=== PATIENT | female | born 1940 | race Caucasian/White ===

== ENCOUNTER 2024-05-18 17:07 | Inpatient (IN) | payer MEDICARE, SELFPAY ==
[2024-05-18] VITALS (20 sets, daily range): BP systolic 132–192; BP diastolic 60–113; PULSE 60–63; BMI 33.6; BMI 31.2
[2024-05-18 13:40] LABS: % Basophils 1.2 % (0-2); % Immature Granulocytes 0.4 % (0-0.5); % Lymphocytes 16.5 % (20.5-51.1); % Monocytes 9.8 % (1.7-9.3); % Neutrophils 70.1 % (42.2-75.2); Absolute Basophils 0.1 10^3/uL (0-0.2); Absolute Eosinophils 0.2 10^3/uL (0-0.7); Absolute Lymphocytes 1.4 10^3/uL (1.2-3.4); Absolute Monocytes 0.8 10^3/uL (0.1-0.6); Absolute Neutrophils 5.8 10^3/uL (1.4-6.5); Hemoglobin 15.1 g/dL (12.0-16.0); Mean Corp Hgb Conc. 32.8 g/dL (33.0-37.0); Mean Corpuscular Hgb 28.4 pg (27.0-31.0); Mean Corpuscular Volume 86.5 fL (81.0-99.0); Mean Platelet Volume 8.2 fL (7.4-10.4); Nucleated Red Blood Cells % 0 %; Platelet Count 376 10^3/uL (130-400); Red Blood Cell Count 5.32 10^6/uL (4.20-5.40); Red Cell Dist. Width 12.7 % (11.5-14.5); White Blood Cell Count 8.3 10^3/uL (4.8-10.8)
[2024-05-18 13:56] LABS: ALT (SGPT) 22 U/L (0-35); AST (SGOT) 31 U/L (14-36); Albumin 4.2 g/dl (3.5-5.0); Alkaline Phosphatase 102 U/L (38-126); Blood Urea Nitrogen 32 mg/dl (7-17); Calcium 10.1 mg/dl (8.4-10.2); Carbon Dioxide 29 mmol/L (22-30); Chloride 97 mmol/L (98-107); Estimated Creatinine Clearance 32 ml/min; Glucose 101 mg/dl (70-99); Sodium 134 mmol/L (135-145); Total Bilirubin 0.6 mg/dl (0.2-1.3); Total Protein 7.6 g/dl (6.3-8.2); eGFR 44.64
--- NOTE | 2024-05-18 14:24 | ED.GENMED ---
History of Present Illness
General
Chief Complaint: Numbness
Source: patient
Exam Limitations: none
Time Seen by Provider: 05/18/24 14:03
Nursing documentation reviewed up to this point in time: agreed with
History of Present Illness
History of Present Illness:
83-year-old female with a past medical history of hypertension who presents to the emergency room for evaluation of clumsiness and paresthesias. Patient reports that symptoms have been ongoing for approximately the past week. She says that she has
had trouble with clumsiness in her hands and legs�she specifically points to difficulty with lifting glasses, dialing telephone numbers, ambulating. She says that she feels symptoms are worsening. She says she has associated paresthesias in the
hands and the feet. She denies any weakness but rather lack of control. She denies any acute change in her vision. She disclosed the symptoms over the phone to her daughter this morning who called EMS to bring her to the hospital for assessment.
Daughter says that she thought her mother speech was slightly slurred on the phone this morning but patient says this was because she was laying her head on a pillow while she was talking and she never actually had any speech changes; daughter
admits that in person her speech seems normal here. Patient also complains of back pain on review of systems but says that this is more of a chronic issue that has been exacerbated over the past 2 weeks since she lifted heavy grocery bag. She also
reports that she has noted frequent 'charley horse' in her thighs and back intermittently for the past few weeks despite drinking plenty of fluids. She denies any history of neuropathy or diabetes. She denies any alcohol use. She denies any other
complaints.
Past History
Past History
ED Past Medical History: None
ED Past Surgical History: None
Social History
Tobacco: Non-smoker
Personal:
Living: with family
Employment: Retired
Review of Systems
Review of Systems
All Other Systems: ROS reviewed and negative except as documented in HPI and ROS
Constitutional: Denies fever
Respiratory: Denies trouble breathing
Cardiac: Denies chest pain
ABD/GI: Denies abdominal pain, nausea or vomiting
: Denies flank pain
Musculoskeletal: Reports back pain; Denies neck pain
Neurological: Reports numbness and other (Clumsiness); Denies dizzy, headache or weakness
Phy Exam
Physical Exam
Physical Exam:
General: Awake, alert, oriented x3; no acute distress
Head: Normocephalic, atraumatic
Eyes: Conjunctiva normal, EOMI, pupils equal round and reactive to light bilaterally
Throat: Airway intact, handling secretions
Neck: Trachea midline, supple without meningismus
Lungs: Clear to auscultation bilaterally, no wheezing, rales, rhonchi
Heart: Regular rate and rhythm, no murmurs, gallops, or rubs appreciated
Abd: Soft, non distended, nontender
Neuro: Cranial nerves intact 2 through 12, speech is fluent with no dysarthria or aphasia; limb ataxia present in both upper extremities as well as both lower extremities although left lower extremity much worse than the right; motor and sensory
function objectively intact and symmetric in all extremities
Skin: no rash
Extremities: No edema in extremities, equal pulses in all extremities
Scores
Heart Failure Risk
Heart Failure Risk Score: Not Applicable
Heart Score for Chest Pain Patients
STEMI patient?: Not applicable
Withdrawal Assessment of Alcohol
Withdrawal Assessment Completed?: Not applicable
Course
Orders/Labs/Results
Orders:
Orders
05/18/24 13:29
Complete Blood Count/With Diff Urgent
Comprehensive Metabolic Panel Urgent
Erythrocyte Sed Rate Urgent
Comment: ADD TO SPECIMEN IN LAB
05/18/24 14:20
Electrocardiogram (*1) Urgent
Reason for Study: TIA/Stroke
EKG- Treatment ONCE
05/18/24 14:23
B12 [Vitamin B12] Urgent
C-Reactive Protein Urgent
Comment: ADD TO SPECIMEN IN LAB
Folate Urgent
TSH Reflex To Free T4 Urgent
Comment: ADDED TO SPECIMEN IN LAB
05/18/24 14:24
NEUROLOGY CONSULT Urgent
Consulting Provider: Hector Howard
Was physician already notified: Yes
05/18/24 14:30
Orthostatic VS- Treatment ONCE
05/18/24 14:31
0.9% Sodium Chloride 500 ml [Nss] 500 ml IV BOLUS
05/18/24 14:33
Orthostatic Vital Signs As Directed
Orthostatic VS Frequency: BID
Comment: lying flat x 3 mins then check, seated 3 minutes check, stand 3 mins check
05/18/24 15:26
EMG [Electromyography] Routine
Reason for Exam: Sensory variant Guillain-Godoy�
Abnormal Lab Results
05/18/24
13:29
MCHC 32.8 L g/dL
(33.0-37.0)
Absolute Monos (auto) 0.8 H 10^3/uL
(0.1-0.6)
Lymphocytes % 16.5 L %
(20.5-51.1)
Monocytes % 9.8 H %
(1.7-9.3)
Sodium 134 L mmol/L
(135-145)
Chloride 97 L mmol/L
(98-107)
BUN 32 H mg/dl
(7-17)
Creatinine 1.2 H mg/dL
(0.6-1.0)
Glucose 101 H mg/dl
(70-99)
05/18/24 13:29
05/18/24 13:29
Vital Signs
Initial and Last Documented VS:
Initial Vital Signs
Temp Pulse Resp BP Pulse Ox
36.3 C 64 20 132/113 97
05/18/24 13:20 05/18/24 13:20 05/18/24 13:20 05/18/24 13:20 05/18/24 13:20
Last Documented Vital Signs
Temp Pulse Resp BP Pulse Ox
36.3 C 64 20 132/113 97
05/18/24 13:20 05/18/24 13:20 05/18/24 13:20 05/18/24 13:20 05/18/24 13:20
MDM/Problems Addressed
Differential Diagnosis Includes:
Subacute stroke, nutritional deficiency/electrolyte derangement, demyelinating disease, neuropathy
MDM/Problems Addressed:
83-year-old female presents to the ER with clumsiness and paresthesias in the extremities for the past week. Hypertensive otherwise normal vitals. Physical exam as above. Labs were sent in triage including a CBC and a CMP�she does have mild MAGO
with a creatinine of 1.2 from baseline of 1. Will check CT head. Discussed case with neurology for evaluation.
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 Much less likely bilateral cerebellar insult. Recommended admission to hospitalist service for further evaluation and
treatment. Can hold on head imaging for now in favor of plan for EMG. Discussed with hospitalist.
Chronic conditions affecting care:
Hypertension
Acute Exacerbation and/or Progression of Chronic Illness:
Acute hypertensive
Acute Exacerbation and/or Progression of Chronic Illness: HTN
*Radiology
Radiology exam reviewed: radiology read reviewed
*Pulse Oximetry
Patient hypoxic: no
*Critical Care Note
Total Time (30-74mins, 75-104mins- exclusive of procedures): Not Applicable
Data Reviewed
Source: patient, records, family and ambulance crew
Patient Management
Discussion with other providers: Sales Support Technician (Discussed with neurology)
ED Attending Note
-
Portions of this chart may have been created with voice recognition software.� Occasional wrong word or��sound alike� substitutions may have occurred due to the inherent limitations of voice recognition software.
Discharge Plan
Departure
Patient Disposition: Admit
Date of Disposition: 05/18/24
Time of Disposition: 15:56
Admit to doctor: Vanessa
Presentation/result/management discussed w/ accepting MD/DO: Hospitalist
Discharge Problem:
Ataxia, Paresthesia
Prescriptions:
No Action
aspirin 81 MG tablet,delayed release (DR/EC)
81 mg PO DAILY
acetaminophen [Tylenol Extra Strength] 500 MG tablet
500 mg PO HSPRN PRN (Reason: sllep/relax )
loratadine 10 MG tablet
10 mg PO PRN PRN (Reason: allergy sxs )
cholecalciferol (vitamin D3) 1,000 UNITS tablet
1,000 units PO DAILY
atenolol 25 MG tablet
25 mg PO DAILY
Lactobac 2-Bifido 1-S. therm [High Potency Probiotic] 1 CAP capsule
1 cap PO DAILY
Referrals:
Chyna Velasquez DO [Family Provider] -
Interventions
Interventions:
*Risk Screen - Suicide Last Done: 05/18/24 13:20
*General Assessment Last Done: 05/18/24 13:20
*Neglect/Abuse Screening Last Done: 05/18/24 13:20
ED- Fall Risk Assessment Last Done: 05/18/24 13:32
ED- Neurological Assessment Last Done: 05/18/24 13:32
Discharge Date and Time
Print Language: CHINESE
--- NOTE | 2024-05-18 14:30 | CON.NEURO ---
Addendum entered and electronically signed by Hector Howard MD 05/18/24 17:02:
Check lumbar puncture to determine if there is cytoalbuminologic dissociation.
Original Note:
Neuro Assessment/Plan
Assessment
Subacute onset of distal numbness and ataxia beginning in fingertips and spreading proximally as well as in bilateral lower extremities and spreading proximally
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
Less likely would be metabolic disturbance producing symptoms
Plan
Check EMG with nerve conduction studies of more than 2 extremities to determine if there is evidence of sensory block consistent with possible Guillain-Godoy� syndrome; appreciate PM&R assistance
Check blood work for potential metabolic abnormalities
Initiate immunoglobulin therapy if EMG study is suggestive of Guillain-Godoy� type pattern
May maintain current antiplatelet agent treatment
Provide pregabalin 50 mg 3 times a day to reduce the patient's discomfort
Follow orthostatic blood pressures
DVT prophylaxis
Rehabilitation evaluations
Will follow
Consultation
Order
Date of Consultation: 05/18/24
Requesting Provider: Emergency department physician
Reason for Consult: Ataxia
Subjective/Objective
Subjective Data
Date of Service: May 18, 2024
Patient presented to this hospital's emergency department with subacute onset of numbness in all extremities as well as ataxia. The patient reports that approximately 2 weeks ago she lifted heavy groceries and 2 weeks following that issue, she
developed acute onset of left hand numbness. The numbness began in her fingertips and spread proximally up to mid arm on the left. Immediately after the onset of the left hand issue was right hand tingling which also spread up the arm. This was
followed days later with leg discomfort starting in the feet and progressing upwards. The patient is more disturbed by a sense of ataxia in bilateral hands which prevents her from being able to use her phone adequately especially in the last few
days. She has a mild sense of weakness in bilateral lower extremities with difficulty with ambulating. There have been no episodes which are similar.
Also of note was that the patient 10 days ago met with a chiropractor for the first time, without adjustments performed, for numerous visits.
Due to continued worsening, the patient presented to this hospital's emergency department.
Objective Data
Vital Signs
Temp Pulse Resp BP Pulse Ox
36.3 C 64 20 132/113 97
05/18/24 13:20 05/18/24 13:20 05/18/24 13:20 05/18/24 13:20 05/18/24 13:20
Lab Results
05/18/24 13:29
05/18/24 13:
Sodium 134 mmol/L (135-145) L 05/18/24 13:29
Potassium 5.0 mmol/L (3.5-5.1) 05/18/24 13:29
BUN 32 mg/dl (7-17) H 05/18/24 13:29
Glucose 101 mg/dl (70-99) H 05/18/24 13:29
Calcium 10.1 mg/dl (8.4-10.2) 05/18/24 13:29
Patient Allergies
codeine [Codeine] Allergy (Verified 05/18/24 13:19)
Unknown
Penicillins Allergy (Verified 05/18/24 13:19)
Unknown
MOST ANTIBIOTICS Allergy (Uncoded 05/18/24 13:19)
Unknown
Review of Systems
-
History Source: Patient and Family
All other systems: Reviewed and negative
Respiratory: Negative Trouble Breathing
Cardiac: Negative Chest Pain
Musculoskeletal: Back Pain (chronic) and Neck Pain
Neuro: Numbness and Ataxia; Negative Dizzy or Headache
Physical Exam
-
General: No Apparent Distress and Appears Stated Age
Eyes: Round OU, [place] Conjunctivae and No Ptosis; Negative Able to visualize OU
HEENT: Anicteric and Moist Mucous Membranes
Neck: Full Range of Motion
Respiratory: No Dyspnea
Cardiac: No JVD
GI: Non-distended
Skin: Unremarkable
Extremities: No Clubbing, No Cyanosis and No Edema
Psych: Intact Judgement/Insight
Extended Neurological Exam
Mood & Affect: Anxious
Attention Span & Concentration: Awake, Alert, Interactive and No Difficulty with 2 Step Request
Memory: Unremarkable
Tremor: Hand Tremor Absent and Head Tremor Absent
Speech: Quality Unremarkable and Quantity Unremarkable
Cranial Nerve II: Left Eye: Pupillary Reactivity Unremarkable, Pupillary Size Unremarkable and Visual Rivera Intact
Cranial Nerve II: Right Eye: Pupillary Reactivity Unremarkable, Pupillary Size Unremarkable and Visual Rivera Intact
Cranial Nerves III, IV, : Extraocular Movement: Extraocular Movement Full in all Directions
Cranial Nerve VII: Facial Symmetry: Normal Facial Symmetry
Cranial Nerve VIII: Hearing: Unremarkable Hearing to Normal Conversational Volume
Cranial Nerves IX, X: Palate Movement: Palate Elevation Symmetric
Cranial Nerve XI: Shoulder Shrug: Unremarkable
Cranial Nerve XII: Tongue Protusion: Midline
Muscle Strength, Overall: Reduced (Left quadriceps) and Otherwise Intact
Muscle Bulk & Tone: Bulk Unremarkable and Tone Unremarkable
Pronator Drift: Drift in Left Upper Extremity (Minimal) and Drift in Right Upper Extremity (Minimal)
Deep Tendon Reflexes: Absent Throughout
Touch Sensation: Pin Prick Reduced (Significantly distally)
Coordination: Negative Ugnfrq-mffp-tssjzm Testing Unremarkable (Minimally ataxic with the right upper extremity) or Fgja-Anxs-Otnv movements intact bilaterally (Mildly ataxic bilaterally)
Babinski Sign: Absent Bilaterally
Gait & Station: Unable to Assess
Data Reviewed
-
CT Head: Pending
Orthostatic Testing: Ordered
Labs: Ordered and Report Reviewed
Reviewed with: Physician, Patient and Family
Old Records: Summarized
Medications
-
Home Medications
�Medication �Instructions �Recorded
Lactobac no.2-Bifidobac no.1-S. 1 cap PO DAILY 04/19/20
thermo 112.5 billion cell capsule
(High Potency Probiotic)
acetaminophen 500 mg tablet 500 mg PO HSPRN PRN sllep/relax 04/19/20
(Tylenol Extra Strength)
aspirin 81 mg tablet,delayed 81 mg PO DAILY 04/19/20
release
atenolol 25 mg tablet 25 mg PO DAILY 04/19/20
cholecalciferol (vitamin D3) 25 1,000 units PO DAILY 04/19/20
mcg (1,000 unit) tablet
loratadine 10 mg tablet 10 mg PO PRN PRN allergy sxs 04/19/20
Past History
Past History
ED Past Medical History: COPD, HTN and Other (Vitamin D deficiency, retinal detachment on the right); Negative Renal failure (CKD 3)
ED Past Surgical History: Other (Cataract extraction)
Social History
Tobacco: Non-smoker
Personal:
Living: with family
Employment: Retired
Family History
Family History: Other (Reviewed and noncontributory)
[2024-05-18] MEDS: NSS 500 IV (14:41)
[2024-05-18 15:28] LABS: Erythrocyte Sed Rate 19 mm/hour (0-20)
[2024-05-18 15:56] LABS: Folate 13.9 ng/ml (2.76-20); Vitamin B12 233 pg/ml (239-931)
--- NOTE | 2024-05-18 16:02 | HPS.HSE ---
Family Physician
-
Family Physician: Chyna Velasquez
Chief Complaint
-
Ataxia and paresthesias
History of Present Illness
83 y/o F with PMHx Essential HTN who p/w CC ataxia and paresthesias. This is progressed over the last week. Patient reports that she has had sensations of numbness and tingling in her feet as well as fingertips. The patient's paresthesias in the
lower extremities have advanced approximately to the patient's buttocks. She denies any difficulty breathing or recent illnesses. Regarding the paresthesias in her fingertips. She states that her fingertips feel 'cold like stone.' She has had
ataxia. She is also had difficulty gripping items and dialing the phone. She has no other acute complaints.
Medical History
Past Medical History
Past Medical History: Reports HTN
Past Surgical History: Reports Other (N/A)
Social History
Tobacco: Non-smoker
Alcohol: None
Drug: None
Family History
Family History: Not pertinent
Allergies / Home Medications
Allergies reflects when Allergies were last updated in [employer].
Home Medications with original date entered in [employer]
Allergy/Medication List:
Allergies
Allergy/AdvReac Type Severity Reaction Status Date / Time
codeine [Codeine] Allergy Unknown Verified 05/18/24 13:19
Penicillins Allergy Unknown Verified 05/18/24 13:19
MOST ANTIBIOTICS Allergy Unknown Uncoded 05/18/24 13:19
Home Medications
Lactobac no.2-Bifidobac no.1-S. thermo 112.5 billion cell capsule (High Potency Probiotic) 1 cap PO DAILY 04/19/20
acetaminophen 500 mg tablet (Tylenol Extra Strength) 500 mg PO HSPRN PRN sllep/relax 04/19/20
aspirin 81 mg tablet,delayed release 81 mg PO DAILY 04/19/20
atenolol 25 mg tablet 25 mg PO DAILY 04/19/20
cholecalciferol (vitamin D3) 25 mcg (1,000 unit) tablet 1,000 units PO DAILY 04/19/20
loratadine 10 mg tablet 10 mg PO PRN PRN allergy sxs 04/19/20
Review of Systems
-
History Source: Patient
A 12 point ROS was completed and negative except as noted: Yes
Physical Exam
Vital Signs
Vital Signs
Temp Pulse Resp BP Pulse Ox
97.4 F 64 20 132/113 97
05/18/24 13:20 05/18/24 13:20 05/18/24 13:20 05/18/24 13:20 05/18/24 13:20
Physical Exam
General: Other (.)
Laboratory Results
-
05/18/24 13:29
05/18/24 13:29
Laboratory Results
Total Bilirubin 0.6 mg/dl (0.2-1.3) 05/18/24 13:29
AST 31 U/L (14-36) 05/18/24 13:29
ALT 22 U/L (0-35) 05/18/24 13:29
Alkaline Phosphatase 102 U/L (38-126) 05/18/24 13:29
Impression/Plan
-
Gen: NAD, AAOx3.
Eyes: EOMI, PERRLA, no scleral icterus.
Neck: supple.
CV: RRR, +S1/S2, no m/r/g.
Resp: CTAB, no rales, wheezes, or rhonchi.
Abd: +BS, soft, NT, ND
Skin: No rashes.
Neuro: CN 2-12 intact, decreased sensation to touch in fingers and toes. Pt states touch feels like 'pins and needles.' LLE 3/5
Psych: Normal mood and affect.
Paresthesias, distal numbness in all 4 extremities progressing proximally with associated ataxia, LLE weakness, subacute:
-seen by neuro, Dr. Howard. I have discussed the case with him over [employer].
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
-for EMG tomorrow. Dr. Singletary to perform [facility]
-start IVIG (dosing confirmed with pharmacist Perico Becerra)
-will need LP, Dr. Howard ordering
-Vit B12 low, replete
-PT/OT
Essential HTN with hypertensive urgency:
-cont home atenolol
-start Norvasc 5mg daily
FULL/SCDs - pt is for LP
[2024-05-18 16:45] LABS: TSH Reflex To Free T4 1.02 uIU/ml (0.47-4.68)
[2024-05-18] MEDS: CYANOCOBALAMIN 1000 MCG IM (17:33)
[2024-05-18 19:41] LABS: INR 1.02; PT 13.7 Sec (11.4-14.6)
[2024-05-18] MEDS: GAMMAGARD 200 IV (21:34)
[2024-05-18] MEDS: TYLENOL 650 MG PO (23:57)
[2024-05-19] VITALS (11 sets, daily range): BP systolic 60–175; BP diastolic 55–94; PULSE 66–77; O2SAT 96
--- NOTE | 2024-05-19 00:33 | PTCARENOTE ---
Pt received gammaglobulin as ordered without difficulty. VS taken.
[2024-05-19 07:22] LABS: Hematocrit 42.5 % (37.0-47.0); Hemoglobin 14.2 g/dL (12.0-16.0); Mean Corp Hgb Conc. 33.4 g/dL (33.0-37.0); Mean Corpuscular Hgb 28.4 pg (27.0-31.0); Mean Platelet Volume 8.3 fL (7.4-10.4); Platelet Count 307 10^3/uL (130-400); Red Cell Dist. Width 12.6 % (11.5-14.5); White Blood Cell Count 6.9 10^3/uL (4.8-10.8)
[2024-05-19 07:46] LABS: Blood Urea Nitrogen 26 mg/dl (7-17); Calcium 9.5 mg/dl (8.4-10.2); Carbon Dioxide 27 mmol/L (22-30); Chloride 97 mmol/L (98-107); Estimated Creatinine Clearance 39 ml/min; Glucose 110 mg/dl (70-99); Potassium 4.9 mmol/L (3.5-5.1); Sodium 133 mmol/L (135-145); eGFR 55.55
--- NOTE | 2024-05-19 10:04 | W.PN.HOSP.TC ---
Addendum entered and electronically signed by Arpit Simons MD 05/19/24 22:41:
Attending Addendum-
I saw and evaluated the patient. I reviewed the resident�s note and agree with findings and plan as documented in the resident�s note. Sub: Continues to have paraesthesias in hands and feets. States she feels clumbsy and unable to picp up a glass of
water without spilling it. Denies pain. Full 12 point ROS reviewed and negative except as documented Exam: Vitals reviewed in chart GEN-NAD heart RRR lungs clear abd soft LE no edema neuro AAO x 3 unable to walk patient due to safety MS 5/
sensation intact b/l past pointing with finger to nose intact heel to boyce.
# Paresthesias, distal numbness in all 4 extremities progressing proximally with associated ataxia, LLE weakness, subacute:
-neuro on board
-EMG 05/19 d/w Dr. Singletary to perform
-check hba1c, tsh
-r/o CIDN/GBS/MS
-low vit b12 could be contributing-replete
-cont IVIG day # 2
-LP 05/19
-PT OT
# Vit B12 deficiency
-replete
# Essential HTN with hypertensive urgency:
-cont home atenolol
-cint new Norvasc 5mg daily
# Hyponatremia
- mild
- repeat in am
FULL/SCDs
Dispo - Eventual acute rehab likely
Time spent coordinating care, review of plan of care with resident, personally reviewed records in EMR, med rec, consults, notes, labs, radiology, d/w nursing PMnR � 56 mins
Original Note:
Today's Communication/Plan
-
EMG pending
Pt/OT
IVF
Assessment / Plan
Assessment / Plan
Assessment: 83-year-old woman who presented to ED with ataxia, clumsiness that has lasted for 1 week.
Impression/plan:
Presentation with ataxia, paresthesia involving fingertips and bilateral lower extremities
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
-Check EMG with nerve conduction studies per neurology.
-Continue pregabalin 50 mg 3 times daily per neurology.
-Neurology impute appreciated
-PT/OT.
-Potentially discharge to SNF for PT.
Hyponatremia
-Most likely due to hypovolemia.
-Supportive therapy with IV fluid.
-Monitor and follow electrolytes.
DVT PPx
SCDs
Anticipated Discharge: 24 - 48 hours
Subjective/Interval History
-
Date of Service: May 19, 2024
83-year-old female with PMH of essential hypertension who presented to the ED with 1 week history of ataxia, paresthesias. Reports clumsiness in her hands and legs with difficulty lifting glasses Dialume phones and ambulating. She however
denies weakness, visual changes, history of diabetic neuropathy, alcohol use.
Objective Data
-
Labs:
Laboratory Results
05/19/24
06:48
WBC 6.9
Hgb 14.2
Hct 42.5
Plt Count 307
Sodium 133 L
Potassium 4.9
Chloride 97 L
Carbon Dioxide 27
BUN 26 H
Creatinine 1.0
Glucose 110 H
Calcium 9.5
Vital Signs:
Vital Signs
Temp Pulse Resp BP Pulse Ox
97.2 F 77 18 175/94 95
05/19/24 07:00 05/19/24 07:00 05/19/24 07:00 05/19/24 07:00 05/19/24 07:00
I&O
05/18/24 05/19/24 05/20/24
06:59 06:59 06:59
Intake Total 440 / 440
Balance 440 / 440
[2024-05-19] MEDS: ASPIR LOW (ENTERIC COATED) 81 MG PO (10:17)
[2024-05-19] MEDS: TENORMIN 25 MG PO (10:17)
[2024-05-19] MEDS: CYANOCOBALAMIN 1000 MCG IM (10:17)
--- NOTE | 2024-05-19 10:19 | CM ---
Patient seen bedside.
Patient lives in a 2 story home, son lives with her.
2 steps to enter, full flight to second floor, with a bannister.
Bed and bath on 2nd floor, no bathroom on 1st floor.
Patient with increasing difficulty going up steps and would like a commode ordered on d/c.
Patient stated unable to use cane due to arm weakness, has a rolling walker.
Patient does not drive, son does not drive.
Patient does have a son that can transport her to appointments and neighbors that assist with transportation.
Patient has not had VN in the past, but agreeable to VN if needed.
PT recommending acute rehab, referral placed.
EMG pending.
PCP: Dr Velasquez
Pharmacy: [facility]
Plan: possible acute rehab
[2024-05-19] MEDS: NSS 1000 IV (13:04)
--- NOTE | 2024-05-19 17:32 | NS.EMG ---
Electromyogram (EMG) Study
EMG/NCS Summary
EMG/nerve conduction study was completed at the patient's bedside.
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
Full dictated report, tabular data, and wave forms to follow.
[2024-05-19 17:35] LABS: CSF Color Colorless; CSF Tube # 1; CSF Tube # Clarity Clear; Red Cell Count/CSF 8 mm^3; White Blood Cell Count/CSF 3 mm^3 (0-5)
[2024-05-19 17:36] LABS: CSF Clarity Clear; CSF Color Colorless; CSF Tube # 4; Red Cell Count/CSF 1 mm^3; White Cell Count/CSF 2 mm^3 (0-5)
[2024-05-19 18:24] LABS: Spinal Fluid Glucose 68 mg/dl (40-70); Spinal Fluid Protein 111 mg/dl (12-60)
[2024-05-19] MEDS: GAMMAGARD 200 IV (20:57)
[2024-05-20] MEDS: TYLENOL 650 MG PO (00:32)
[2024-05-20] MEDS: SENOKOT-S 1 TABLET PO (00:47)
[2024-05-20] MEDS: NSS 1000 IV ×3 (01:56→20:03)
[2024-05-20 07:00] VITALS: BP 180/86
--- NOTE | 2024-05-20 07:13 | W.PN.HOSP.TC ---
Addendum entered and electronically signed by Arpit Simons MD 05/20/24 21:00:
Attending Addendum-
I saw and evaluated the patient. I reviewed the resident�s note and agree with findings and plan as documented in the resident�s note. Sub: upset regarding chronicity of paraesthesias in hands and feet. Denies pain. Full 12 point ROS reviewed and
negative except as documented Exam: Vitals reviewed in chart GEN-NAD heart RRR lungs clear abd soft LE no edema neuro AAO x 3 stable and steady gair with walkerMS 5/5 sensation intact intact heel to boyce.
# Paresthesias, distal numbness in all 4 extremities progressing proximally
-neuro on board
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
-check yvo0b-8.2 prediabetes, tsh-WNL
-low vit b12 could be contributing-replete
-DC IVIG reciewed 2 days
-LP 05/19- only abnormality elevated protein
-d/w no further imaging required (MRI) and no definitive treatments available per neuro
-start gabapentin
-PT OT- acute rehab eval pending
# Vit B12 deficiency
-replete
# Essential HTN
-cont home atenolol
-cont new Norvasc 5mg daily
# Prediabetes
- hba1c 6.2
- dietary and weight loss education
- t/c starting metformin as OP
- close follow up
# Hyponatremia
- resolved
- repeat BMP in am
FULL/SCDs
Dispo -acute rehab eval pending, medically stable for DC in am
Time spent coordinating care, review of plan of care with resident, personally reviewed records in EMR, med rec, consults, notes, labs, radiology, d/w nursing neuro PMnR� 55 mins
Original Note:
Today's Communication/Plan
-
LP pending
Stop IVIG
Start pregabalin
Replete B12
Pain control
Physiatry referral.
CM for dispo to [facility]
Assessment / Plan
Assessment / Plan
Assessment: 83-year-old woman who presented to ED with ataxia, clumsiness that has lasted for 1 week.
Impression/plan:
Sensory axonal neuropathy
-Suspect toxic etiology.
-EMG completed 05/19, negative for demyelination or multiple involvement, GBS unlikely per neurology.
-B12 minimally decreased, HbA1c 6.2, TSH WNL.
-Stop IVIG.
-Start pregabalin 75 Mg twice daily.
-Replete B12.
-CSF with high total protein, cultures NGTD, negative for WBC.
-Neurology impute appreciated
-Physiatry referral for evaluation.
-PT/OT.
Vitamin B12 deficiency
-Continue 1000 mcg IM vitamin B12 supplementation daily for 7 days.
-Transition to 1000 mcg once weekly for 4 weeks.
-Repeat CBC in 2 to 3 weeks with reticulocyte count.
-Follow for symptom resolution.
Lower back pain
-Suspect musculoskeletal in origin.
-Does not respond to Tylenol.
-Trial of lidocaine patch.
-Continue to monitor.
Hyponatremia
-Resolved.
-Suspect from hypovolemia
-Supportive therapy with IV fluid.
-Monitor and follow electrolytes.
Essential hypertension with hypertensive urgency
-Denies vision changes, headaches.
-On home atenolol
-Continue with Norvasc 5 mg daily.
Dispo: [facility] after IVIG therapy. IVIG schedule changed to accommodate [facility] on the last day of IVIG therapy.
DVT PPx
SCDs
Anticipated Discharge: Within 24 hours
Subjective/Interval History
-
Date of Service: May 20, 2024
I have seen and examined the patient. Patient was seen ambulating with assistance from the bathroom back to her bed with a walker. Gait was normal, no shortness of breath, no major weakness. She complains of lower back pain that does not respond
to Tylenol. She says that Tylenol makes her constipated however she had a bowel movement for the first time this morning since 3 days. No loose stools. She reports that she is able to hold her legs up but still has residual pain and needle
sensations in her fingers and numbness in her bilateral lower extremities and a gloves and stockings distribution. She received her IVIG at 9 PM and tolerates. She denies chest pain, shortness of breath, abdominal pain, fever, nausea, vomiting,
urinary symptoms.
Objective Data
-
Labs:
Laboratory Results
05/20/24
06:37
WBC Pending
Hgb Pending
Hct Pending
Plt Count Pending
Sodium Pending
Potassium Pending
Chloride Pending
Carbon Dioxide Pending
BUN Pending
Creatinine Pending
Glucose Pending
Calcium Pending
Vital Signs:
Vital Signs
Temp Pulse Resp BP Pulse Ox
97.6 F 70 18 149/70 96
05/19/24 23:45 05/19/24 23:45 05/19/24 23:45 05/19/24 23:45 05/19/24 23:45
I&O
05/19/24 05/20/24 05/21/24
06:59 06:59 06:59
Intake Total 440 / 440 660 / 660 1340 / 1340
Balance 440 / 440 660 / 660 1340 / 1340
Review of Systems
-
History Source: Patient
Constitutional: Reports No Symptoms
EENT: Reports No Symptoms Reported
Respiratory: Reports No Symptoms
Cardiac: Reports No Symptoms
Abdomen/GI: Reports No Symptoms
Genitourinary: Reports No Symptoms
Musculoskeletal: Reports No Symptoms
Skin: Reports Other
Neuro: Reports Weakness, Numbness (Bilateral LE), Ataxia (Bilateral UE) and Other (Paresthesias bilateral fingers); Denies Dizzy, Headache, Tremors or Lightheadedness
Endocrine: Reports No Symptoms
Hematologic / Lymphatic: Reports No Symptoms
Physical Exam
-
General: Well Developed and No Apparent Distress
HEENT: Normocephalic, Atraumatic and Moist Mucous Membranes
Respiratory: Clear to Auscultation
Cardiac: Regular Rhythm and S1/S2; Negative Murmur, Rub or Gallop
GI: Soft, Nontender, Nondistended and Normal Bowel Sounds; Negative Organomegaly
Rectal: Deferred by Provider
Musculoskeletal: No Clubbing, No Cyanosis and No Edema
Skin: Warm and Dry; Negative Rash
Neuro: Awake, AO x 3 and Other (Numbness in bilateral lower extremities, paresthesias bilateral finger tips)
Hematologic / Lymphatic: No Lymphadenopathy
Psych: Calm
Data Reviewed
-
Labs: Labs Reviewed by me and Discussed with Physician
Old Records: Reviewed
[2024-05-20 08:49] LABS: % Basophils 1.2 % (0-2); % Eosinophils 2.2 % (0-6); % Immature Granulocytes 0.5 % (0-0.5); % Lymphocytes 9.5 % (20.5-51.1); % Neutrophils 76.6 % (42.2-75.2); Absolute Basophils 0.1 10^3/uL (0-0.2); Absolute Eosinophils 0.1 10^3/uL (0-0.7); Absolute Lymphocytes 0.6 10^3/uL (1.2-3.4); Absolute Monocytes 0.6 10^3/uL (0.1-0.6); Absolute Neutrophils 4.5 10^3/uL (1.4-6.5); Hematocrit 42.5 % (37.0-47.0); Hemoglobin 13.9 g/dL (12.0-16.0); Mean Corp Hgb Conc. 32.7 g/dL (33.0-37.0); Mean Corpuscular Hgb 28.4 pg (27.0-31.0); Mean Corpuscular Volume 86.9 fL (81.0-99.0); Mean Platelet Volume 8.7 fL (7.4-10.4); Nucleated Red Blood Cells % 0 %; Platelet Count 303 10^3/uL (130-400); Red Blood Cell Count 4.89 10^6/uL (4.20-5.40); Red Cell Dist. Width 12.8 % (11.5-14.5); White Blood Cell Count 5.8 10^3/uL (4.8-10.8)
[2024-05-20 09:12] LABS: Blood Urea Nitrogen 23 mg/dl (7-17); Calcium 8.8 mg/dl (8.4-10.2); Carbon Dioxide 24 mmol/L (22-30); Chloride 104 mmol/L (98-107); Estimated Creatinine Clearance 39 ml/min; Glucose 102 mg/dl (70-99); Potassium 4.8 mmol/L (3.5-5.1); Sodium 136 mmol/L (135-145); eGFR 55.55
[2024-05-20] MEDS: LIDOCAINE 4% PATCH 1 PATCH TOPICAL (09:16)
[2024-05-20] MEDS: ASPIR LOW (ENTERIC COATED) 81 MG PO (09:16)
[2024-05-20] MEDS: TENORMIN 25 MG PO (09:16)
[2024-05-20] MEDS: CYANOCOBALAMIN 1000 MCG IM (09:16)
[2024-05-20 09:30] VITALS: BP 169/83; BP 172/83; BP 175/83; PULSE 67; PULSE 68; PULSE 70
[2024-05-20 10:04] LABS: TSH Reflex To Free T4 1.27 uIU/ml (0.47-4.68)
[2024-05-20 10:13] LABS: Glycohemoglobin (HgbA1c) 6.2 % (4.0-5.6)
--- NOTE | 2024-05-20 10:38 | W.PN.NEURO.1 ---
Today's Communication / Plan
-
Discussed findings with patient; I have no treatments to make this better.
Discharge planning
Neuro Assessment/Plan
Assessment
Subacute onset of distal numbness and ataxia beginning in fingertips and spreading proximally as well as in bilateral lower extremities and spreading proximally
EMG showing axonal sensory neuropathy. axonal neuropathy has a million causes, mostly toxic, none of which I can treat.
No evidence of demyelinating, no evidence of motor involvement, so no suspicion of GBS variants such as Medina Mercedes; no indication for IVIG.
paresthesias discussed with patient starting Lyrica; she's not interested right now
B12 level of 233 which is borderline; without evidence of demyelinating neuropathy or macrocytic anemia.
Plan
Discussed findings with patient; I have no treatments to make this better.
Discharge planning
Subjective/Objective
Subjective Data
Date of Service: May 20, 2024
~2 weeks of ascending numbness, paresthesias and ataxia beginning in upper extremities and then lower extremities.
symptoms persist
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
Objective Data
Vital Signs
Temp Pulse Resp BP Pulse Ox
36.6 C 65 18 180/86 94
05/20/24 07:00 05/20/24 07:00 05/20/24 07:00 05/20/24 07:00 05/20/24 07:00
Lab Results
05/20/24 06:37
05/20/24 06:37
PT 13.7 Sec (11.4-14.6) 05/18/24 19:17
INR 1.02 05/18/24 19:17
Sodium 136 mmol/L (135-145) 05/20/24 06:37
Potassium 4.8 mmol/L (3.5-5.1) 05/20/24 06:37
BUN 23 mg/dl (7-17) H 05/20/24 06:37
Glucose 102 mg/dl (70-99) H 05/20/24 06:37
Calcium 8.8 mg/dl (8.4-10.2) 05/20/24 06:37
Vitamin B12 233 pg/ml (239-931) L 05/18/24 14:23
Patient Allergies
codeine [Codeine] Allergy (Verified 05/18/24 13:19)
Unknown
Penicillins Allergy (Verified 05/18/24 13:19)
Unknown
MOST ANTIBIOTICS Allergy (Uncoded 05/18/24 13:19)
Unknown
Physical Exam
-
Awake and alert, anxious, mentating appropriately.
full strength
areflexic
decreased pinprick sensation distally
mildly ataxic
--- NOTE | 2024-05-20 14:35 | CM ---
Chart reviewed and caseworker met with patient this am and plan is for acute rehab at [facility], referral sent to [facility], waiting on physiatry to review and make recommendations.
Plan; Hopefully [facility] acute [facility]hab, pending evaluations.
[2024-05-20 14:54] VITALS: BP 109/84; PULSE 58
[2024-05-20 16:28] VITALS: BP 159/64
[2024-05-20 16:29] VITALS: BP 134/64; BP 159/64; BP 179/82; PULSE 58; PULSE 60; PULSE 66
[2024-05-20 19:45] VITALS: BP 145/92; BP 167/80; BP 188/85; PULSE 62; PULSE 72; PULSE 92
[2024-05-20] MEDS: LYRICA 75 MG PO (19:47)
[2024-05-20] MEDS: NEURONTIN 200 MG PO (22:43)
[2024-05-20] MEDS: NORVASC 5 MG PO (23:16)
[2024-05-21] VITALS (7 sets, daily range): BP systolic 101–182; BP diastolic 60–88; PULSE 68–95
--- NOTE | 2024-05-21 00:29 | PTCARENOTE ---
Pt assessed as per flow sheet. Pt anxious about new medications. Educated on use of Lyrica and Neurontin. SBP high. IP ARCHITECT contacted. Provided Norvasc as ordered. Tolerated all meds. No s/s of distress assessed. Will continue to monitor.
[2024-05-21] MEDS: APRESOLINE 5 MG IV (02:40)
[2024-05-21] MEDS: NSS 1000 IV (03:42)
--- NOTE | 2024-05-21 07:08 | W.PN.HOSP.TC ---
Addendum entered and electronically signed by Arpit Simons MD 05/21/24 20:32:
Attending Addendum-
I saw and evaluated the patient. I reviewed the resident�s note and agree with findings and plan as documented in the resident�s note. Sub: continues to have paraesthesias in hands and feet. States she had hallucinations with Neurontin. Full 12
point ROS reviewed and negative except as documented Exam: Vitals reviewed in chart GEN-NAD heart RRR lungs clear abd soft LE no edema neuro AAO x 3 stable and steady gait with walker MS 5/5 sensation intact intact heel to boyce.
# Paresthesias, distal numbness in all 4 extremities progressing proximally
-neuro on board
-EMG 43-[id number] axonal sensory peripheral polyneuropathy
-check fok8j-7.2 prediabetes, tsh-WNL
-low vit b12 could be contributing-replete
-IVIG received 2 days then DC'd
-LP 05/19- only abnormality elevated protein
-d/w no further imaging required (MRI) and no definitive treatments available per neuro
-DC gabapentin start cymbalta as likely has psychological component as well
-PT OT- acute rehab in am
# Vit B12 deficiency
-replete
# Essential HTN
-uncontrolled
-increase atenolol and norvasc
-CTM
# Prediabetes
- hba1c 6.2
- dietary and weight loss education
- t/c starting metformin as OP
- close follow up
# Hyponatremia
- resolved
- repeat BMP in am
FULL/SCDs
Dispo -medically stable for DC in am, [place] to [facility]
Time spent coordinating care, review of plan of care with resident, personally reviewed records in EMR, med rec, consults, notes, labs, radiology, d/w nursing CM PMnR� 52 mins
Original Note:
Today's Communication/Plan
-
Hold gabapentin
Follow CBC and BMP
PT/OT
Accepted from [facility]
Assessment / Plan
Assessment / Plan
Assessment: 83-year-old woman who presented to ED with ataxia, clumsiness that has lasted for 1 week.
Impression/plan:
Sensory axonal neuropathy
-Suspect toxic etiology.
-EMG completed 05/19, negative for demyelination or multiple involvement, GBS unlikely per neurology.
-B12 minimally decreased, HbA1c 6.2, TSH WNL.
-IVIG stopped after 2 days.
-Consider MRI, no definitive treatment available prior neuro.
-Hold gabapentin due to subjective complaints.
-Replete B12.
-CSF with high total protein, cultures NGTD, negative for WBC.
-Neurology impute appreciated.
-Physiatry referral for evaluation.
-PT/OT.
Vitamin B12 deficiency
-Replete.
Lower back pain
-Suspect musculoskeletal in origin.
-Continue lidocaine patch.
Prediabetes
-Recent A1c 6.2.
-Encouraged to lose weight, adopt healthy diet and exercise.
-Consider starting metformin outpatient.
-Follow A1c.
Hyponatremia from hypovolemia
-Resolved.
-Monitor and follow electrolytes.
Essential hypertension
-Continue atenolol and Norvasc.
Dispo: [facility]
DVT PPx
SCDs
Anticipated Discharge: 24 - 48 hours
Subjective/Interval History
-
Date of Service: May 21, 2024
I have seen and examined patient. At bedside, patient was lying comfortably in no acute distress. Complaints of lower back pain that improves with sitting on the chair. Continues to complain of numbness and tingling sensations in her legs and
fingertips. Overnight, patient reports some visual hallucinations which has since resolved and dry mouth. She also stated that she does not like to take pills. She denies chest pain, shortness of breath, palpitations, fever or chills.
Objective Data
-
Labs:
Laboratory Results
05/21/24
06:00
WBC Pending
Hgb Pending
Hct Pending
Plt Count Pending
Sodium Pending
Potassium Pending
Chloride Pending
Carbon Dioxide Pending
BUN Pending
Creatinine Pending
Glucose Pending
Calcium Pending
Vital Signs:
Vital Signs
Temp Pulse Resp BP Pulse Ox
98.1 F 81 18 169/88 95
05/20/24 23:40 05/21/24 03:40 05/20/24 23:40 05/21/24 03:40 05/20/24 23:40
I&O
05/20/24 05/21/24 05/22/24
06:59 06:59 06:59
Intake Total 660 / 660 2420 / 2420
Balance 660 / 660 2420 / 2420
Review of Systems
-
History Source: Patient
Constitutional: Reports No Symptoms
EENT: Reports No Symptoms Reported
Respiratory: Reports No Symptoms
Cardiac: Reports No Symptoms
Abdomen/GI: Reports No Symptoms
Genitourinary: Reports No Symptoms
Musculoskeletal: Reports No Symptoms
Skin: Reports Other (Numbness and tingling sensations)
Neuro: Reports Weakness, Numbness (Bilateral LE), Ataxia (Bilateral UE) and Other (Paresthesias bilateral fingers); Denies Dizzy, Headache, Tremors or Lightheadedness
Endocrine: Reports No Symptoms
Hematologic / Lymphatic: Reports No Symptoms
Physical Exam
-
General: Well Developed and No Apparent Distress
HEENT: Normocephalic, Atraumatic and Moist Mucous Membranes
Respiratory: Clear to Auscultation
Cardiac: Regular Rhythm and S1/S2; Negative Murmur, Rub or Gallop
GI: Soft, Nontender, Nondistended and Normal Bowel Sounds; Negative Organomegaly
Rectal: Deferred by Provider
Musculoskeletal: No Clubbing, No Cyanosis and No Edema
Skin: Warm and Dry; Negative Rash
Neuro: Awake, AO x 3 and Other (Numbness in bilateral lower extremities, paresthesias bilateral finger tips)
Hematologic / Lymphatic: No Lymphadenopathy
Psych: Calm
Data Reviewed
-
Labs: Labs Reviewed by me and Discussed with Physician
Old Records: Reviewed
--- NOTE | 2024-05-21 07:08 | W.DCSUMMARY ---
Addendum entered and electronically signed by Arpit Simons MD 05/22/24 23:37:
Read, reviewed, and agree. See same day progress note for additional details.
Jerry Simons MD
Original Note:
Documented by User: Erasmo Kaur MD, Resident 05/22/24 18:37
Discharge Summary
Discharge Data
Date of Admission: 05/18/24
Date of Discharge: 05/22/24
-
Pending Results: Yes
Additional Pending Results:
Lumbar puncture
Hospital Course
Discharging Physician : Arpit Simons MD ; Erasmo Kaur MD
Disposition : Acute ([facility]) rehab
Primary care physician : Chyna Velasquez DO
Principal Discharge diagnosis :
Sensory axonal neuropathy
Vitamin B12 deficiency
Low back pain
Prediabetes
Hyponatremia
Essential hypertension
Hospital Course :
83-year-old female with PMH of essential hypertension who presented to the the ED with 4 days history of ataxia and paresthesia. She describes sensation of numbness and tingling sensations in her hands and fingertips including bilateral feet.
She denied vision changes, speech changes, problems swallowing, nausea, vomiting or diarrhea or urinary symptoms.
While in the hospital, the patient was seen in consultation with neurology and was evaluated with an EMG. The EMG report was positive for length-dependent axonal sensory peripheral polyneuropathy. Her vitamin B12 level was also found to be
minimally decreased and she was started on IVIG and vitamin B12 supplementation. After 2 days of therapy, her IVIG was discontinued after further evaluation by neurology. She was started on Lyrica but did not like how it made him feel and it was
subsequently discontinued. Patient was also given a dose of duloxetine and reported visual hallucinations and asked for the medication to be discontinued. Patient also stated that she does not like to take medications and would like to go without
any of these treatments. While in the hospital, patient also received treatment with physical therapy and Occupational Therapy and tolerated treatments. Her lower back pain was treated with lidocaine patch and improved. While in the hospital, she
was also found to have hypertensive urgency and was started on higher dose of atenolol (50 mg) and Norvasc 5 mg daily which was subsequently increased to 7.5 mg. However, patient refused continuing this medications and opted to take 25 mg twice
daily.
Her lumbar puncture results are still pending at the time of discharge but had no growth to date. Her VDRL serology was negative.
Patient has been evaluated and is medically stable for discharge to acute rehab where she will complete further physical therapy for her ADLs.
Discharge Plan
-
Patient Disposition: Acute Rehab Facility
Discharge Diagnosis/Procedures: Axonal sensory peripheral polyneuropathy
Essential hypertension
Vitamin B12 deficiency
Impaired glucose tolerance
Hyponatremia
Condition: Fair
Diet: Low Cholesterol, Low Sodium and Diabetic, Carb Controlled
Activity: As tolerated and With Walker
Driving Restrictions: No driving
Bathing Restrictions: None
Referrals:
Chyna Velasquez DO [Family Provider] - in less than 1 week
Additional Discharge Medication Instructions: Take atenolol 25 mg by mouth twice daily for blood pressure
Prescriptions:
New
polyethylene glycol 3350 17 gram Powder In Packet
17 g PO DAILYPRN PRN (Reason: constipation) Qty: 0 0RF
atenolol 25 mg tablet
25 mg PO BID Qty: 60 0RF
Continued
aspirin 81 MG tablet,delayed release (DR/EC)
81 mg PO DAILY
acetaminophen [Tylenol Extra Strength] 500 MG tablet
500 mg PO HSPRN PRN (Reason: sleep/relax )
loratadine 10 MG tablet
10 mg PO PRN PRN (Reason: allergy sxs )
cholecalciferol (vitamin D3) 1,000 UNITS tablet
1,000 units PO DAILY
Dfjzp-Doyrf-Pxobmaee-bacterio 10 billion cell -15 mg Capsule,Delayed Release(Dr/Ec)
1 cap PO DAILY
Discontinued
atenolol 25 MG tablet
25 mg PO DAILY
Discharge Orders:
Discharge Patient (As Directed); Ordered 05/22/24
Ordered By: Erasmo Kaur
Discharge Date and Time
Discharge Date/Time: 05/22/24 16:27
Print Language: VIETNAMESE

Documented by User: Arpit Simons MD 05/22/24 23:34
Discharge Summary
Discharge Data
Date of Admission: 05/18/24
Date of Discharge: 05/22/24
Discharge Plan
-
Patient Disposition: Acute Rehab Facility
Discharge Diagnosis/Procedures: Axonal sensory peripheral polyneuropathy
Essential hypertension
Vitamin B12 deficiency
Impaired glucose tolerance
Hyponatremia
Condition: Fair
Diet: Low Cholesterol, Low Sodium and Diabetic, Carb Controlled
Activity: As tolerated and With Walker
Driving Restrictions: No driving
Bathing Restrictions: None
Referrals:
Chyna Velasquez DO [Family Provider] - in less than 1 week
Additional Discharge Medication Instructions: Take atenolol 25 mg by mouth twice daily for blood pressure
Prescriptions:
New
polyethylene glycol 3350 17 gram Powder In Packet
17 g PO DAILYPRN PRN (Reason: constipation) Qty: 0 0RF
atenolol 25 mg tablet
25 mg PO BID Qty: 60 0RF
Continued
aspirin 81 MG tablet,delayed release (DR/EC)
81 mg PO DAILY
acetaminophen [Tylenol Extra Strength] 500 MG tablet
500 mg PO HSPRN PRN (Reason: sleep/relax )
loratadine 10 MG tablet
10 mg PO PRN PRN (Reason: allergy sxs )
cholecalciferol (vitamin D3) 1,000 UNITS tablet
1,000 units PO DAILY
Upzfv-Xdoyj-Wxlexjvx-bacterio 10 billion cell -15 mg Capsule,Delayed Release(Dr/Ec)
1 cap PO DAILY
Discontinued
atenolol 25 MG tablet
25 mg PO DAILY
Discharge Orders:
Discharge Patient (As Directed); Ordered 05/22/24
Ordered By: Erasmo Kaur
Discharge Date and Time
Discharge Date/Time: 05/22/24 16:27
Print Language: VIET[place]ESE
[2024-05-21] MEDS: LIDOCAINE 4% PATCH 1 PATCH TOPICAL (09:15)
[2024-05-21] MEDS: TENORMIN 25 MG PO (09:16)
[2024-05-21] MEDS: CYANOCOBALAMIN 1000 MCG IM (09:16)
[2024-05-21] MEDS: ASPIR LOW (ENTERIC COATED) 81 MG PO (09:16)
[2024-05-21 09:18] LABS: % Eosinophils 0.9 % (0-6); % Immature Granulocytes 0.3 % (0-0.5); % Lymphocytes 11.4 % (20.5-51.1); % Monocytes 11.4 % (1.7-9.3); Absolute Basophils 0.1 10^3/uL (0-0.2); Absolute Eosinophils 0.1 10^3/uL (0-0.7); Absolute Lymphocytes 0.8 10^3/uL (1.2-3.4); Absolute Monocytes 0.8 10^3/uL (0.1-0.6); Absolute Neutrophils 5.1 10^3/uL (1.4-6.5); Hematocrit 40.1 % (37.0-47.0); Hemoglobin 13.1 g/dL (12.0-16.0); Mean Corp Hgb Conc. 32.7 g/dL (33.0-37.0); Mean Corpuscular Hgb 28.4 pg (27.0-31.0); Mean Corpuscular Volume 86.8 fL (81.0-99.0); Mean Platelet Volume 8.6 fL (7.4-10.4); Nucleated Red Blood Cells % 0 %; Platelet Count 267 10^3/uL (130-400); Red Blood Cell Count 4.62 10^6/uL (4.20-5.40); White Blood Cell Count 6.8 10^3/uL (4.8-10.8)
[2024-05-21 09:40] LABS: Blood Urea Nitrogen 16 mg/dl (7-17); Calcium 8.9 mg/dl (8.4-10.2); Carbon Dioxide 23 mmol/L (22-30); Chloride 98 mmol/L (98-107); Estimated Creatinine Clearance 48 ml/min; Glucose 100 mg/dl (70-99); Potassium 4.7 mmol/L (3.5-5.1); Sodium 133 mmol/L (135-145); eGFR > 60.00
[2024-05-21] MEDS: MIRALAX 17 GRAMS PO (10:56)
[2024-05-21] MEDS: SENOKOT-S PO (10:56)
[2024-05-21] MEDS: NSS IV (13:19)
--- NOTE | 2024-05-21 16:52 | CM ---
Patient is for possible transport to [facility] tomorrow.
[facility]
Report [phone]
[2024-05-21] MEDS: LOVENOX 40 MG SC (17:20)
[2024-05-21] MEDS: CYMBALTA DELAYED RELEASE 60 MG PO (21:43)
[2024-05-21] MEDS: NORVASC 7.5 MG PO (21:44)
--- NOTE | 2024-05-22 07:14 | W.PN.HOSP.TC ---
Addendum entered and electronically signed by Arpit Simons MD 05/22/24 23:36:
Attending Addendum-
I saw and evaluated the patient. I reviewed the resident�s note and agree with findings and plan as documented in the resident�s note. Sub: continues to have paraesthesias in hands and feet. States she felt confused and 'woozy' with Cymbalta. 'Im
not taking that anymore' ready for rehab. Full 12 point ROS reviewed and negative except as documented Exam: Vitals reviewed in chart GEN-NAD heart RRR lungs clear abd soft LE no edema neuro AAO x 3 stable and steady gait with walker MS 5/5
sensation intact
# Paresthesias, distal numbness in all 4 extremities progressing proximally
-neuro on board
-EMG 05/1955-tzedjm-quoocfhwz axonal sensory peripheral polyneuropathy
-pkk9d-2.2 prediabetes, tsh-WNL
-low vit b12 could be contributing-replete
-IVIG received 2 days then DC'd
-LP 05/19- only abnormality elevated protein
-d/w no further imaging required (MRI) and no definitive treatments available per neuro
-failed trial of gabapentin and cymbalta, likely has psychological component as well
-PT OT- acute rehab
# Vit B12 deficiency
-replete
# Essential HTN
-better controlled
-continue atenolol and norvasc
# Prediabetes
- hba1c 6.2
- dietary and weight loss education
- t/c starting metformin as OP
- close follow up
# Hyponatremia
- resolved
- repeat BMP in am
FULL/SCDs
Dispo -medically stable for DC in am, DC to [facility]
Time spent coordinating care, DC planning, review of DC plan of care with resident, transition of care, review of records, med rec/scripts sent electronically, consults, notes, d/w consultants, nursing, family, and CM� 33 mins
Original Note:
Today's Communication/Plan
-
Continue PT/OT
Dispo to [facility]
Assessment / Plan
Assessment / Plan
Assessment: 83-year-old woman who presented to ED with ataxia, clumsiness that has lasted for 1 week.
Impression/plan:
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
-EMG 05/19 negative.
-Did not tolerate Gabapentin and Duloxetine.
-Replete B12.
-IVIG stopped s/p 2 days, GBS unlikely.
-CSF with high total protein, -ve wbc, cultures pending.
-Neurology appreciated.
-PT/OT.
Vitamin B12 deficiency
-Continue home regimen.
Lower back pain-Musculoskeletal.
-Tolerable per pt.
-Continue lidocaine patch, heat pads.
Prediabetes
-Recent A1c 6.2.
-Encouraged to lose weight, adopt healthy diet and exercise.
-Consider starting metformin outpatient.
-Follow A1c.
Hyponatremia from hypovolemia
-Resolved.
-Monitor and follow electrolytes.
Essential hypertension
-Continue atenolol and Norvasc.
Dispo: [facility] rehab
DVT PPx
SCDs
Anticipated Discharge: Today
Subjective/Interval History
-
Date of Service: May 22, 2024
I saw and examined this patient. Patient was seen at bedside sitting on the chair comfortably in no apparent cardiopulmonary distress. She reports that she would not like to take duloxetine because she does not like how it made her feel. She
reports episodes of visual hallucinations that is new which she said is due to her new medication. Otherwise she has no acute complaints. Denies chest pain, shortness of breath, palpitations, fever or chills. She has been evaluated and is
medically stable for discharge to [facility].
Objective Data
-
Labs:
Laboratory Results
05/22/24
06:44
WBC Pending
Hgb Pending
Hct Pending
Plt Count Pending
Sodium Pending
Potassium Pending
Chloride Pending
Carbon Dioxide Pending
BUN Pending
Creatinine Pending
Glucose Pending
Calcium Pending
Vital Signs:
Vital Signs
Temp Pulse Resp BP Pulse Ox
98.4 F 69 18 151/74 96
05/21/24 23:15 05/21/24 23:15 05/21/24 23:15 05/21/24 23:15 05/21/24 23:15
I&O
05/21/24 05/22/24 05/23/24
06:59 06:59 06:59
Intake Total 2420 / 2420 1395 / 1395
Balance 2420 / 2420 1395 / 1395
Review of Systems
-
History Source: Patient
All other systems: Not reviewed unless documented
Constitutional: Reports No Symptoms
EENT: Reports No Symptoms Reported
Respiratory: Reports No Symptoms
Cardiac: Reports No Symptoms
Abdomen/GI: Reports No Symptoms
Genitourinary: Reports No Symptoms
Musculoskeletal: Reports No Symptoms
Skin: Reports Other (Numbness and tingling sensations)
Neuro: Reports Weakness, Numbness (Bilateral LE), Ataxia (Bilateral UE) and Other (Paresthesias bilateral fingers); Denies Dizzy, Headache, Tremors or Lightheadedness
Endocrine: Reports No Symptoms
Hematologic / Lymphatic: Reports No Symptoms
Physical Exam
-
General: Well Developed and No Apparent Distress
HEENT: Normocephalic, Atraumatic and Moist Mucous Membranes
Respiratory: Clear to Auscultation
Cardiac: Regular Rhythm and S1/S2; Negative Murmur, Rub or Gallop
GI: Soft, Nontender, Nondistended and Normal Bowel Sounds; Negative Organomegaly
Rectal: Deferred by Provider
Musculoskeletal: No Clubbing, No Cyanosis and No Edema
Skin: Warm and Dry; Negative Rash
Neuro: Awake, AO x 3 and Other (Numbness in bilateral lower extremities, paresthesias bilateral finger tips)
Hematologic / Lymphatic: No Lymphadenopathy
Psych: Calm
Data Reviewed
-
Labs: Labs Reviewed by me and Discussed with Physician
Old Records: Reviewed
[2024-05-22 07:25] VITALS: BP 150/68; BP 156/71; BP 162/67; PULSE 67; PULSE 77
[2024-05-22 08:01] VITALS: BP 162/67
[2024-05-22 08:06] LABS: % Basophils 0.8 % (0-2); % Eosinophils 1.7 % (0-6); % Immature Granulocytes 0.3 % (0-0.5); % Lymphocytes 19.3 % (20.5-51.1); % Monocytes 12.1 % (1.7-9.3); % Neutrophils 65.8 % (42.2-75.2); Absolute Basophils 0.1 10^3/uL (0-0.2); Absolute Eosinophils 0.1 10^3/uL (0-0.7); Absolute Lymphocytes 1.2 10^3/uL (1.2-3.4); Absolute Monocytes 0.7 10^3/uL (0.1-0.6); Absolute Neutrophils 3.9 10^3/uL (1.4-6.5); Hematocrit 40.4 % (37.0-47.0); Hemoglobin 13.5 g/dL (12.0-16.0); Mean Corp Hgb Conc. 33.4 g/dL (33.0-37.0); Mean Corpuscular Hgb 28.7 pg (27.0-31.0); Mean Corpuscular Volume 85.8 fL (81.0-99.0); Mean Platelet Volume 8.7 fL (7.4-10.4); Nucleated Red Blood Cells % 0 %; Platelet Count 256 10^3/uL (130-400); Red Blood Cell Count 4.71 10^6/uL (4.20-5.40)
[2024-05-22] MEDS: CYMBALTA DELAYED RELEASE PO (08:10)
[2024-05-22] MEDS: LIDOCAINE 4% PATCH 1 PATCH TOPICAL (08:10)
[2024-05-22] MEDS: ASPIR LOW (ENTERIC COATED) 81 MG PO (08:12)
[2024-05-22] MEDS: TENORMIN 50 MG PO (08:12)
[2024-05-22] MEDS: CYANOCOBALAMIN 1000 MCG IM (08:12)
[2024-05-22 08:37] LABS: Blood Urea Nitrogen 21 mg/dl (7-17); Calcium 9.2 mg/dl (8.4-10.2); Carbon Dioxide 22 mmol/L (22-30); Chloride 100 mmol/L (98-107); Estimated Creatinine Clearance 48 ml/min; Glucose 116 mg/dl (70-99); Sodium 134 mmol/L (135-145); eGFR > 60.00
[2024-05-22 11:04] LABS: CSF VDRL (T. pallidum) Non Reactive (Non Reactive)
--- NOTE | 2024-05-22 12:30 | CM ---
Addendum entered by Juliane Hodges 05/22/24 14:29:
IMM completed.
Original Note:
Patient is for transfer to [facility] today.
[facility]
Report [phone]
[2024-05-22 15:06] VITALS: BP 150/66; BP 164/71; BP 170/74; PULSE 59; PULSE 75; PULSE 78
[2024-05-22 15:08] VITALS: BP 150/66
== END 2024-05-22 16:27 | DRG 74 ==
LOC: 4 WEST ACU 17:07
PROVIDERS: Emergency Medicine; Radiology Diagnostic Radiology; Student in an Organized Health Care Education/Training Program; ADMITTING PHYSICIAN Internal Medicine; ATTENDING PHYSICIAN Family Medicine; CONSULT PHYSICIAN Psychiatry & Neurology Neurology; EMERGENCY PHYSICIAN Emergency Medicine; FAMILY PHYSICIAN Family Medicine
PROC: 3E0334Z Introduction of Serum, Toxoid and Vaccine into Peripheral Vein, Percutaneous Approach (ICD-10-PCS; 2024-05-18)
PROC: 009U3ZX Drainage of Spinal Canal, Percutaneous Approach, Diagnostic (ICD-10-PCS; 2024-05-19)
DX: G62.89 Other specified polyneuropathies (principal); E87.1 Hypo-osmolality and hyponatremia; I10 Essential (primary) hypertension; I16.0 Hypertensive urgency; E53.8 Deficiency of other specified B group vitamins; E55.9 Vitamin D deficiency, unspecified; R73.03 Prediabetes; Z88.0 Allergy status to penicillin; Z88.5 Allergy status to narcotic agent; Z79.82 Long term (current) use of aspirin; Z79.899 Other long term (current) drug therapy
CPT/HCPCS: 62270; 80048; 80053; 82607; 82746; 82945; 83036; 84157; 84443; 85025; 85027; 85610; 85652; 86140; 86592; 87015; 87070; 87102; 87116; 87205; 88108; 89051; 93005; 95886; 95912; 96360; 97116; 97163; 97167; 97530; 97535; 99285; J1569

== ENCOUNTER 2024-05-24 00:04 | Emergency (ER) | payer MEDICARE, SELFPAY ==
[2024-05-24] VITALS (8 sets, daily range): BP systolic 156–194; BP diastolic 69–168; BMI 32.7
[2024-05-24 00:34] LABS: % Basophils 0.6 % (0-2); % Eosinophils 1.8 % (0-6); % Immature Granulocytes 0.4 % (0-0.5); % Lymphocytes 13.6 % (20.5-51.1); % Neutrophils 74.6 % (42.2-75.2); Absolute Eosinophils 0.1 10^3/uL (0-0.7); Absolute Monocytes 0.7 10^3/uL (0.1-0.6); Absolute Neutrophils 5.4 10^3/uL (1.4-6.5); Hematocrit 42.4 % (37.0-47.0); Hemoglobin 14.5 g/dL (12.0-16.0); Mean Corp Hgb Conc. 34.2 g/dL (33.0-37.0); Mean Corpuscular Hgb 28.4 pg (27.0-31.0); Mean Corpuscular Volume 83.1 fL (81.0-99.0); Mean Platelet Volume 8.3 fL (7.4-10.4); Nucleated Red Blood Cells % 0 %; Platelet Count 273 10^3/uL (130-400); Red Cell Dist. Width 12.5 % (11.5-14.5); White Blood Cell Count 7.2 10^3/uL (4.8-10.8)
[2024-05-24 01:31] LABS: Urine Albumin Negative (Neg - Trace); Urine Bilirubin Negative (Negative); Urine Character Slightly Cloudy (Clear); Urine Color Yellow; Urine Glucose Negative (Negative); Urine Ketone Negative (Negative); Urine Leukocyte 3+ (Negative); Urine Nitrite Negative (Negative); Urine Occult Blood Negative (Negative); Urine Urobilinogen Negative (Neg - 1+)
[2024-05-24 01:36] LABS: Urine Red Blood Cell 0-2 /HPF (0-2); Urine Squamous Cell 21-25 /LPF (Few)
[2024-05-24 01:37] LABS: Urine Bacteria Many (Negative); Urine White Cell 21-25 /HPF (0-5)
[2024-05-24] MEDS: APRESOLINE 5 MG IV (01:54)
[2024-05-24 02:37] LABS: ALT (SGPT) 19 U/L (0-35); AST (SGOT) 31 U/L (14-36); Albumin 3.6 g/dl (3.5-5.0); Alkaline Phosphatase 83 U/L (38-126); Blood Urea Nitrogen 15 mg/dl (7-17); Calcium 9.2 mg/dl (8.4-10.2); Carbon Dioxide 27 mmol/L (22-30); Chloride 94 mmol/L (98-107); Estimated Creatinine Clearance 50 ml/min; Glucose 121 mg/dl (70-99); Potassium 4.3 mmol/L (3.5-5.1); Sodium 127 mmol/L (135-145); Total Bilirubin 0.5 mg/dl (0.2-1.3); Total Protein 6.9 g/dl (6.3-8.2); eGFR > 60.00
--- NOTE | 2024-05-24 04:59 | ED.GENMED ---
History of Present Illness
General
Chief Complaint: Blood Pressure Problem
Source: patient and previous hospital records (Recent hospitalization May 18 to May 22 for evaluation of bilateral extremity paresthesias, weakness, clumsiness as well as accelerated hypertension, low back pain.)
Exam Limitations: none
Time Seen by Provider: 05/24/24 01:19
Nursing documentation reviewed up to this point in time: agreed with
History of Present Illness
History of Present Illness:
This is an 83-year-old woman who has a longstanding history of hypertension, history of low back pain, lumbar DJD, sciatica, recently hospitalized May 18 to May 22 for evaluation of numbness and tingling of all 4 extremities, weakness,
clumsiness as well as increase in low back pain. She was also noted to be significantly hypertensive. Guillain-Godoy� was ruled out, lumbar puncture unremarkable. Blood pressure medications adjusted however patient hesitant to add medications.
She was discharged to [facility] for continued care and continued physical therapy.
She states today was her first day of therapy and 'they worked her hard' as well as this was the first day she got a shower.
She complains of increased low back pain and was noted to be hypertensive yesterday during physical therapy with systolic blood pressure at 200. Was evaluated by hebrew teacher and recommended amlodipine 2.5 mg twice daily which patient is now agreeable
to initiate and was also given a dose of hydralazine yesterday during physical therapy.
She denies headache, has not had a fall, no chest pain or shortness of breath.
She is sent from [facility] to the ED due to continued back pain as well as elevated blood pressure and continued paresthesias of her extremities which have been unchanged.
Past History
Past History
ED Past Medical History: COPD, HTN and Other (Vitamin D deficiency, retinal detachment on the right); Negative Renal failure (CKD 3)
ED Past Surgical History: Other (Cataract extraction)
Social History
Tobacco: Non-smoker
Personal:
Living: with family
Employment: Retired
Family History
Family History: Other (Reviewed and noncontributory)
Phy Exam
Physical Exam
Physical Exam:
GENERAL: Alert , in no apparent distress
EYE: pupils equal and reactive. anicteric
NECK: Supple, nontender, no meningismus, no significant adenopathy. No JVD.
ENT: posterior pharynx is clear, oral mucosa is moist. No rhinorrhea. There is a large serpiginous fleshy nodule right latter day.
CARDIAC: Regular rate and rhythm. no murmur.
LUNGS: Clear breath sounds bilaterally, no acute respiratory distress, no wheezes/rales/rhonchi
ABDOMEN: Soft, nondistended, without focal tenderness, no r/g, no cvat. normoactive BS.
BACK: No midline bony tenderness. Straight leg raising is negative bilaterally.
NEUROLOGICAL: Alert and oriented x3, no focal neuro deficits. Motor strength is 5/5 bilaterally. Gross sensation intact.
SKIN: Warm and dry, normal color, skin intact. No rash.
MUSCULOSKELETAL: No C/C/E. peripheral pulses are full and equal b/l. No palpable tenderness.
PSYCH: Normal and appropriate interaction.
Course
Orders/Labs/Results
Orders:
Orders
05/24/24 00:27
Complete Blood Count/With Diff Urgent
05/24/24 01:22
Urinalysis Reflex To Culture Urgent
Date Specimen was Collected: 05/24/24
Time Specimen was Collected: 01:21
Urine Microscopic Reflex Cult Urgent
Urine Culture Urgent
JOSE Source: U
Specimen Description:
Date Specimen was Collected: 05/24/24
Time Specimen was Collected: 01:21
05/24/24 01:31
CT Head W/o Iv Contrast Urgent
Comment:
Reason For Exam: accelerated HTN, paresthesia of extremities
05/24/24 01:37
HydrALAZINE [Apresoline] 5 mg IV NOW STA
05/24/24 01:46
CT Angio Abd/Pelvis w/wo IV [CT Abd/pelvis Angio W/wo Iv] Urgent
Comment:
Reason For Exam: back pain, accelerated HTN
05/24/24 02:06
Comprehensive Metabolic Panel Urgent
05/24/24 05:08
Acetaminophen [Tylenol] 1,000 mg PO NOW STA
Tramadol HCl [Ultram] 25 mg PO NOW STA
Abnormal Lab Results
05/24/24 05/24/24 05/24/24
00:27 01:22 02:06
Absolute Lymphs (auto) 1.0 L 10^3/uL
(1.2-3.4)
Absolute Monos (auto) 0.7 H 10^3/uL
(0.1-0.6)
Lymphocytes % 13.6 L %
(20.5-51.1)
Sodium 127 L mmol/L
(135-145)
Chloride 94 L mmol/L
(98-107)
Glucose 121 H mg/dl
(70-99)
Leukocyte Esterase Rfl 3+ A
(Negative)
Urine WBC (Reflex) 21-25 A /HPF
(0-5)
Urine Bacteria (Reflex) Many A
(Negative)
05/24/24 00:27
05/24/24 02:06
Vital Signs
Initial and Last Documented VS:
Initial Vital Signs
Temp Pulse Resp BP Pulse Ox
97.9 F 52 24 194/168 96
05/24/24 00:12 05/24/24 00:12 05/24/24 00:12 05/24/24 00:12 05/24/24 00:12
Last Documented Vital Signs
Temp Pulse Resp BP Pulse Ox
97.9 F 52 15 184/77 95
05/24/24 00:12 05/24/24 06:45 05/24/24 06:45 05/24/24 06:00 05/24/24 06:45
MDM/Problems Addressed
Differential Diagnosis Includes:
Concern for occult CVA, will check CT of the head.
Patient has known low back pain related to DJD but with accelerated hypertension must consider aortic dissection, aortic aneurysm. Will check CTA of the abdomen and pelvis.
Uptrend in blood pressure and increased back pain could certainly be attributed to recent initiation of physical therapy, increased physical activity.
Will give an IV dose of hydralazine.
Will check labs.
If CAT scan is unremarkable will trial a dose of tramadol for back pain.
Chronic conditions affecting care: HTN
*Radiology
Radiology exam reviewed: radiology read reviewed
*Pulse Oximetry
Patient hypoxic: no
*Fire Investigation Manager Interpretation
Rate: normal
Interpretation: normal
Rhythm: sinus
*Critical Care Note
Total Time (30-74mins, 75-104mins- exclusive of procedures): Not Applicable
Update Note
Update Note:
07:00
Blood pressures improved with systolic ranging 170-180.
CT of the head is unremarkable.
CTA abdomen/pelvis shows aortic atherosclerotic disease without evidence of dissection or aneurysm.
Patient resting comfortably with improvement in back pain after small dose of tramadol along with Tylenol.
Will discharge back to [facility] for continued care.
ED Attending Note
-
Portions of this chart may have been created with voice recognition software.� Occasional wrong word or��sound alike� substitutions may have occurred due to the inherent limitations of voice recognition software.
Discharge Plan
Departure
Patient Disposition: Acute Rehab Facility
Date of Disposition: 05/24/24
Time of Disposition: 07:01
Discharge Problem:
Accelerated essential hypertension, Acute exacerbation of chronic low back pain
Prescriptions:
No Action
aspirin 81 MG tablet,delayed release (DR/EC)
81 mg PO DAILY
acetaminophen [Tylenol Extra Strength] 500 MG tablet
500 mg PO HSPRN PRN (Reason: sleep/relax )
loratadine 10 MG tablet
10 mg PO PRN PRN (Reason: allergy sxs )
cholecalciferol (vitamin D3) 1,000 UNITS tablet
1,000 units PO DAILY
Jwcff-Vroer-Fgzacvkz-bacterio 10 billion cell -15 mg Capsule,Delayed Release(Dr/Ec)
1 cap PO DAILY
polyethylene glycol 3350 17 gram Powder In Packet
17 g PO DAILYPRN PRN (Reason: constipation) Qty: 0 0RF
atenolol 25 mg tablet
25 mg PO BID Qty: 60 0RF
Referrals:
Chyna Velasquez DO [Family Provider] -
Interventions
Interventions:
*Risk Screen - Suicide Last Done: 05/24/24 00:12
*General Assessment Last Done: 05/24/24 00:12
*Neglect/Abuse Screening Last Done: 05/24/24 00:12
*ED COVID-19 Vaccine History Last Done: 05/24/24 00:24
ED- Cardiac Assessment Last Done: 05/24/24 00:30
ED- Neurological Assessment Last Done: 05/24/24 00:30
ED- Pulmonary Assessment Last Done: 05/24/24 00:30
Discharge Date and Time
Print Language: CHILEAN
[2024-05-24] MEDS: TYLENOL 1000 MG PO (05:17)
[2024-05-24] MEDS: ULTRAM 25 MG PO (05:18)
== END 2024-05-24 07:55 ==
LOC: EMR 00:04
PROVIDERS: EMERGENCY PHYSICIAN Emergency Medicine; FAMILY PHYSICIAN Family Medicine
DX: I10 Essential (primary) hypertension (principal); M54.50 Low back pain, unspecified; R53.1 Weakness; R20.2 Paresthesia of skin; G89.29 Other chronic pain; I70.0 Atherosclerosis of aorta; M47.816 Spondylosis without myelopathy or radiculopathy, lumbar region; M54.40 Lumbago with sciatica, unspecified side; J44.9 Chronic obstructive pulmonary disease, unspecified; E55.9 Vitamin D deficiency, unspecified; Z79.82 Long term (current) use of aspirin; Z87.891 Personal history of nicotine dependence; Z87.440 Personal history of urinary (tract) infections; Z88.1 Allergy status to other antibiotic agents; Z88.5 Allergy status to narcotic agent; Z88.0 Allergy status to penicillin; Z88.8 Allergy status to other drugs, medicaments and biological substances
CPT/HCPCS: 99284; 96374; 70450; 74174; 80053; 81003; 81015; 85025; 87086; Q9967